=== PATIENT | female | born 1965 | race Caucasian/White ===

== ENCOUNTER → 2017-08-07 | Outpatient (CLI) | payer OTHER ==
[~2017-08-07] MED LIST: INTRATHECAL PUMP; ROXICODONE15 MG PO; SEE INSTRUCTIONS IT; VALIUM 10MG10 MG/TAB PO
== END ==
LOC: ZCOL.LAB 12:50
DX: T85.79XA Infection and inflammatory reaction due to other internal prosthetic devices, implants and grafts, initial encounter (principal)

== ENCOUNTER → 2017-10-06 | Outpatient (CLI) | payer OTHER | LOC: ZCOL.LAB 11:05 | DX: T85.79XA Infection and inflammatory reaction due to other internal prosthetic devices, implants and grafts, initial encounter (principal) ==